=== PATIENT | male | born 1975 | race Two or more races ===

== ENCOUNTER 2018-10-01 10:35 | Emergency (ER) | payer OTHER ==
[~2018-10-01] VITALS: Ht 172.7 cm; Wt 86.2 kg
[2018-10-01] MEDS ORDERED: FLONASE ALLERG9.9 ML (10:50)
[2018-10-01] MEDS ORDERED: ASTELIN (10:51)
[2018-10-01] MEDS ORDERED: XOPENEX0.63 MG/3 (10:51)
[2018-10-01] MEDS ORDERED: SINGULAIR10 MG (10:51)
[2018-10-01] MEDS ORDERED: AMOX1TAB5 PO (12:47)
[2018-10-01] MEDS ORDERED: MEDROLPACK PO (12:47)
[2018-10-01] MEDS ORDERED: TUSSI PRES-B L120 M1 PO (12:47)
== END 2018-10-01 12:56 | disposition home or self-care (01) ==
LOC: ER 10:35
DX: J06.9 Acute upper respiratory infection, unspecified (principal)

== ENCOUNTER 2022-11-17 12:44 | Emergency (ER) | payer OTHER ==
[~2022-11-17] VITALS: Ht 172.7 cm; Wt 86.2 kg
[~2022-11-17 12:44] MED LIST: AMOX1TAB5 PO; ASTELIN; FLONASE ALLERG9.9 ML; MEDROLPACK PO; SINGULAIR10 MG; TUSSI PRES-B L120 M1 PO; XOPENEX0.63 MG/3
[2022-11-17] MEDS ORDERED: LOSARTAN-HCTZ1 EACH PO (13:10)
== END 2022-11-17 16:26 | disposition home or self-care (01) ==
LOC: ER 12:44
DX: J06.9 Acute upper respiratory infection, unspecified (principal); I10 Essential (primary) hypertension; E78.00 Pure hypercholesterolemia, unspecified

== ENCOUNTER → 2023-11-17 | Emergency (ER) | payer OTHER ==
[~2023-11-17] VITALS: Ht 172.7 cm; Wt 86.2 kg
[~2023-11-17] MED LIST changes: +LOSARTAN-HCTZ1 EACH PO
== END | disposition home or self-care (01) ==
LOC: ER 16:14
DX: R05.8 Other specified cough (principal); Z91.013 Allergy to seafood